=== PATIENT | male | born 1950 | race Caucasian/White ===

== ENCOUNTER 2018-03-29 11:40 | Day surgery (SDC) | payer OTHER ==
[2018-03-29] MEDS ORDERED: LIDOCAINE 2% (SDV) 5 ML INJ (13:35)
[2018-03-29] MEDS ORDERED: PROPOFOL 40 ML (13:35)
== END 2018-03-29 15:22 | disposition home or self-care (01) ==
LOC: GIL 11:40
DX: K64.8 Other hemorrhoids (principal); K63.89 Other specified diseases of intestine; E78.5 Hyperlipidemia, unspecified; E03.9 Hypothyroidism, unspecified
CPT/HCPCS: 43239; 88305; 88312; 88313

== ENCOUNTER 2018-08-10 13:33 | Day surgery (SDC) | payer OTHER ==
[2018-08-10] MEDS ORDERED: PROPOFOL 40 ML (15:58)
== END 2018-08-10 17:45 | disposition home or self-care (01) ==
LOC: GIL 13:33
DX: K63.89 Other specified diseases of intestine (principal); K64.8 Other hemorrhoids
CPT/HCPCS: 45378